=== PATIENT | female | born 1965 | race Caucasian/White ===

== ENCOUNTER 2017-04-11 08:28 | Outpatient (CLI) | payer BC ==
[2015-02-09 12:34] VITALS: BMI 25.1
[~2017-04-11 08:28] MED LIST: ATIVAN1 MG PO; BAYER CHEWABLE81 MG PO; BUSPAR 15 MG TA15 MG PO; CYCLOBENZAPRINE10 MG PO; FOLIC ACID1 MG PO; HYDROCHLOROTH12.5 M1 PO; LIPITOR10 MG PO; NORVASC10 MG PO; PERCOCET 5-3251 TAB PO; PLAQUENIL200 MG PO; PREDNISONE5 MG PO; PRILOSEC20 MG PO; PROVENTIL/2.5 MG/3 M NEB; SYNTHROID112 MCG PO; ZESTRIL40 MG PO; ZOLOFT100 MG PO
== END 2017-04-11 11:17 ==
LOC: D.MAMMO 08:28
DX: Z12.31 Encounter for screening mammogram for malignant neoplasm of breast (principal)

== ENCOUNTER → 2017-05-19 14:48 | Outpatient (CLI) | payer BC ==
[2015-02-09 12:34] VITALS: BMI 25.1
== END | disposition home or self-care (01) ==
LOC: D.MAMMO 09:00
DX: N63 Unspecified lump in breast (principal)

== ENCOUNTER → 2017-08-14 10:47 | Outpatient (CLI) | payer OTHER ==
[2015-02-09 12:34] VITALS: BMI 25.1
== END | disposition home or self-care (01) ==
LOC: D.RT 10:47
DX: Z02.71 Encounter for disability determination (principal)

== ENCOUNTER 2018-04-07 11:28 | Emergency (ER) | payer BC ==
[2015-02-09 12:34] VITALS: BMI 25.1
[2018-04-07 12:01] LABS: APPEARANCE CLEAR (CLEAR); BILIRUBIN NEGATIVE (NEGATIVE); COLOR YELLOW (YELLOW); GLUCOSE NEGATIVE (NEGATIVE); KETONE NEGATIVE (NEGATIVE); NITRITE NEGATIVE (NEGATIVE); PROTEIN NEGATIVE (NEGATIVE); UROBILINOGEN NORMAL (NORMAL)
[2018-04-07 12:02] LABS: EPITHELIAL CELLS 0-5 /hpf (0-5); RED CELLS - URINE 0-5 /hpf (0-5)
[2018-04-07 12:03] LABS: BACTERIA MODERATE /hpf (NONE SEEN); HCG URINE NEGATIVE (NEGATIVE)
[2018-04-07 12:06] LABS: UDS - AMPHET NEGATIVE QUAL (NEGATIVE); UDS - BARB NEGATIVE QUAL (NEGATIVE); UDS - BENZO NEGATIVE QUAL (NEGATIVE); UDS - COCAINE NEGATIVE QUAL (NEGATIVE); UDS - OPIATE NEGATIVE QUAL (NEGATIVE); UDS - PCP NEGATIVE QUAL (NEGATIVE); UDS - THC POSITIVE QUAL (NEGATIVE)
[2018-04-07 12:14] LABS: BASOPHILS 0.3 % (0-2); EOSINOPHILS 0.3 % (0-7); HEMATOCRIT 39.3 % (36.0-48.0); HEMOGLOBIN 13.8 g/dL (12-16); IMMATURE GRANULOCYTES 0.1 % (0-5); LYMPHOCYTES 10.6 % (15-50); MCH 31.5 pg (26.0-34.0); MCHC 35.1 g/dL (31.0-37.0); MCV 89.7 fL (80.0-100.0); MEAN PLATELET VOLUME 10.8 fL (7.4-10.4); MONOCYTES 5.5 % (2-11); NEUTROPHILS 83.2 % (40-80); PLATELET COUNT 273 10x3/uL (130-400); RBC 4.38 10x6/uL (4.00-5.40); RDW 11.9 % (11.5-14.5); WBC 7.2 10x3/uL (4.8-10.8)
[2018-04-07 12:29] LABS: ALBUMIN 4.1 g/dL (3.4-5.0); ANION GAP 13.8 mmol/L (8-16); BILIRUBIN - TOTAL 0.6 mg/dL (0.2-1.3); CALCIUM 9.5 mg/dL (8.5-10.1); CARBON DIOXIDE 27.8 mmol/L (21.0-32.0); CREATININE - SERUM 1.1 mg/dL (0.6-1.3); PROTEIN - SERUM 8.3 g/dL (6.4-8.2)
[2018-04-07 12:31] LABS: POTASSIUM - SERUM 2.6 mmol/L (3.5-5.1)
== END 2018-04-07 16:21 | disposition home or self-care (01) ==
LOC: D.ER 11:28
PROVIDERS: Family Medicine
DX: F41.9 Anxiety disorder, unspecified (principal); Z86.59 Personal history of other mental and behavioral disorders; E87.6 Hypokalemia; F17.200 Nicotine dependence, unspecified, uncomplicated

== ENCOUNTER 2018-04-12 11:34 | Emergency (ER) | payer BC ==
[2015-02-09 12:34] VITALS: BMI 25.1
[2018-04-12 12:10] LABS: UDS - AMPHET NEGATIVE QUAL (NEGATIVE); UDS - BARB NEGATIVE QUAL (NEGATIVE); UDS - BENZO NEGATIVE QUAL (NEGATIVE); UDS - COCAINE NEGATIVE QUAL (NEGATIVE); UDS - OPIATE NEGATIVE QUAL (NEGATIVE); UDS - PCP NEGATIVE QUAL (NEGATIVE); UDS - THC POSITIVE QUAL (NEGATIVE)
[2018-04-12 12:11] LABS: APPEARANCE CLEAR (CLEAR); BACTERIA FEW /hpf (NONE SEEN); BILIRUBIN NEGATIVE (NEGATIVE); COLOR YELLOW (YELLOW); GLUCOSE NEGATIVE (NEGATIVE); HYALINE CAST 0-5 /lpf (NONE SEEN); KETONE NEGATIVE (NEGATIVE); MUCUS <1+ /lpf (NONE SEEN); NITRITE NEGATIVE (NEGATIVE); PROTEIN NEGATIVE (NEGATIVE); RED CELLS - URINE OCC /hpf (0-5); UROBILINOGEN NORMAL (NORMAL)
[2018-04-12 12:13] LABS: BASOPHILS 0.3 % (0-2); EOSINOPHILS 0.2 % (0-7); HEMATOCRIT 36.3 % (36.0-48.0); HEMOGLOBIN 12.5 g/dL (12-16); IMMATURE GRANULOCYTES 0.2 % (0-5); LYMPHOCYTES 8.8 % (15-50); MCH 31.5 pg (26.0-34.0); MCHC 34.4 g/dL (31.0-37.0); MCV 91.4 fL (80.0-100.0); MEAN PLATELET VOLUME 10.6 fL (7.4-10.4); NEUTROPHILS 85.5 % (40-80); PLATELET COUNT 247 10x3/uL (130-400); RBC 3.97 10x6/uL (4.00-5.40); WBC 6.6 10x3/uL (4.8-10.8)
[2018-04-12 12:30] LABS: BILIRUBIN - TOTAL 0.35 mg/dL (0.2-1.3); CALCIUM 9.1 mg/dL (8.5-10.1); CARBON DIOXIDE 28.6 mmol/L (21.0-32.0); CREATININE - SERUM 0.9 mg/dL (0.6-1.3); PROTEIN - SERUM 7.6 g/dL (6.4-8.2)
[2018-04-12 12:36] LABS: ANION GAP 12.4 mmol/L (8-16)
== END 2018-04-12 22:38 | disposition short-term general hospital (02) ==
LOC: D.ER 11:34
PROVIDERS: Family Medicine
DX: F23 Brief psychotic disorder (principal); F22 Delusional disorders; Z86.59 Personal history of other mental and behavioral disorders

== ENCOUNTER → 2019-09-23 08:15 | Outpatient (CLI) | payer BC ==
[2015-02-09 12:34] VITALS: BMI 25.1
--- NOTE | 2019-09-24 16:04 | EC ---
PATIENT:JAMAAL WOODALL DATE OF SERVICE: 09/23/19 SEX: F MEDICAL RECORD: [id number] DATE OF : [birth year] LOCATION:[facility] AGE OF PATIENT: 53 ADMISSION DATE: 09/23/19 REFERRING PHYSICIAN: INTERPRETING PHYSICIAN: KRYSTINA BATES MD ECHOCARDIOGRAM REPORT ECHO CHARGES 4 ECHO COMPLETE Date: 09/23/19 CLINICAL DIAGNOSIS: PERICARDIAL EFFUSION H/O HTN ECHOCARDIOGRAPHIC MEASUREMENTS (adult normal given) AC root (d.<3.7cm) 3.2 cm LV Septum d (<1.2 cm> 1.2 cm Valve Excursion 1.6 cm LV Septum (systole) 1.7 cm Left Atria (s.<4.0cm> 3.9 cm LVPW d(<1.2cm) 0.9 cm RV (d.<2.3cm) 2.5 cm LVPW (sytole) 1.8 cm LV diastole(<5.6CM) 4.2 cm MV E-F(>70mm/sec) cm LV systole 1.6 cm LVOT Diameter 1.8 cm MV exc.(>10mm) cm Est.ejection fraction (50-75%) % DOPPLER: LVIT cm/sec A 92.0 cm/sec E 78.0 cm/sec LA cm/sec RVSP 24.0 mmHg LVOT 161 cm/sec AOP1/2T m/s Asc. Ao 157 cm/sec RVOT 61.0 cm/sec RA cm/sec PA 130 cm/sec AV Gradient Peak 9.8 mmHg AV Mean 5.3 mmHg AV Area 2.5 cm MV Gradient Peak 5.2 mmHg MV Mean 2.8 mmHg MV Area cm COMMENTS: OP - [facility] Branch Customer Service Representative: 1 BRISA SPIKE Electrician Office: 3 Dr. Jay TAPE# PACS Pericardial Effusion Y DATE OF SERVICE: Adequate 2D, color flow, spectral Doppler, and M-mode. No LVH. LV internal dimension is normal. Wall motion is normal. EF is greater than or equal to 55%. Aortic valve is tricuspid. No evidence of stenosis by Doppler interrogation. Left atrium is normal at 3.9 cm. Mitral valve shows no prolapse. Trace MR. Right-sided chambers are grossly normal. Trace TR. Incidental note is made of small pericardial effusion of no hemodynamic significance. ECHOCARDIOGRAM REPORT [id number] JAMAAL WOODALL TRANSINT:[id number] Voice Confirmation ID: [id number] DOCUMENT ID: [id number] KRYSTINA BATES MD at 1604 CC: [id number] DICTATION DATE: 09/24/19 1305 TRACKWALKER: 09/24/19 1456 DEP CLI 09/23/19 [place] [id number] [place] [id number]
== END | disposition home or self-care (01) ==
LOC: D.HCCECHO 08:15
PROVIDERS: ATTEND Internal Medicine Interventional Cardiology
DX: I10 Essential (primary) hypertension (principal)